=== PATIENT | female | born 1985 | race African-American/Black ===

== ENCOUNTER 2019-12-17 09:22 | Emergency (ER) | payer MEDICAID, OTHER ==
[~2019-12-17] VITALS: Ht 182.9 cm; Wt 103.0 kg
[2019-12-17] MEDS ORDERED: SODIUM CHLORIDE 0.9% 1,000 ML IV ONE (10:55)
[2019-12-17 11:07] LABS: BASOPHILS % 1.7 % (0.0-2.0); EOSINOPHILS % 0.9 % (0.0-5.0); MEAN CORPUSCULAR HEMOGLOBIN 21.3 pg (28.0-32.0); MEAN CORPUSCULAR VOLUME 68.4 fL (81.0-99.0); MEAN PLATELET VOLUME 8.8 fl (7.4-10.4); MONOCYTES % 9.1 % (2.0-8.0); NEUTROPHILS % 58.3 % (40.0-76.0); PLATELET 296 x1000/uL (130-400); RED BLOOD CELL COUNT 3.01 mill/uL (4.2-5.4); RED CELL DISTRIBUTION WIDTH 17.9 % (11.6-14.6)
[2019-12-17 11:13] LABS: CHLORIDE 111 mEq/L (98-107)
[2019-12-17 11:16] LABS: HEMOGLOBIN. 6.4 g/dL (12.0-16.0)
[2019-12-17 11:17] LABS: HEMATOCRIT. 20.6 % (36.0-48.0)
[2019-12-17 11:21] LABS: PROTHROMBIN TIME 10.4 sec (9.6-11.0)
[2019-12-17 11:49] LABS: HCG SCREEN NEGATIVE
[2019-12-17 12:05] LABS: CLARITY URINE CLOUDY (CLEAR); COLOR URINE RED (YELLOW); KETONES URINE NEGATIVE (NEGATIVE); LEUKOCYTE ESTERASE URINE TRACE (NEGATIVE); NITRITE URINE NEGATIVE (NEGATIVE); OCCULT BLOOD URINE 3+ (NEGATIVE); PROTEIN URINE 1+ (NEGATIVE); SPECIFIC GRAVITY URINE 1.011 (1.005-1.030); UROBILINOGEN URINE 0.2 E.U./dL (0.2-1.0)
[2019-12-17 12:16] LABS: PLATELET ESTIMATE NORMAL
[2019-12-17 16:27] VITALS: BP 146/69
== END 2019-12-17 17:19 | disposition short-term general hospital (02) ==
LOC: ER 09:22
DX: D64.9 Anemia, unspecified (principal); R42 Dizziness and giddiness; R53.1 Weakness; N93.9 Abnormal uterine and vaginal bleeding, unspecified; J45.909 Unspecified asthma, uncomplicated; Z90.49 Acquired absence of other specified parts of digestive tract
CPT/HCPCS: 36415; 80053; 81003; 81025; 84703; 85025; 85610; 86850; 86900; 86901; 86920; 93005; 96360; 96361; 99285; J7030; Z7610; P9016